=== PATIENT | female | born 1985 | race Caucasian/White ===

== ENCOUNTER 2024-12-07 14:28 | Emergency (ER) | payer OTHER, SELFPAY ==
[2024-12-07 14:51] VITALS: BP 141/88; PULSE 88; TEMP 37.2; O2SAT 100; BMI 53.4
--- NOTE | 2024-12-07 14:59 | PC.NURSE ---
Abcess at jones, painful 10/10 when walking.
[2024-12-07] MEDS: LORAZEPAM 1 MG TABLET PO (15:39)
[2024-12-07] MEDS: LIDOCAINE HCL 1% 100 MG/10 ML MDV INJ (15:39)
--- NOTE | 2024-12-07 16:15 | ED.GENADUL1 ---
HPI HPI - General Adult General Chief complaint: Skin/Abscess/Foreign Body Stated complaint: L LEG PAIN Time Seen by Provider: 12/07/24 15:03 Source: patient Mode of arrival: walk-in History of Present Illness HPI narrative: 39-year-old female presents here with a chief complaint of a subcuticular abscess to the left jones. She states she accidentally nicked her skin while shaving and then developed an abscess. She was placed on doxycycline by dermatology. She called them today stating the abscess was getting bigger had not drained so they had her come to the emergency room. Patient has a 6 x 8 cm area of induration with purulent drainage noted. She is afebrile does not appear toxic there is no streaking. Related Data Home Medications ?Medication ?Instructions ?Recorded ?Confirmed doxycycline monohydrate 100 mg 100 mg PO Q12H 12/07/24 12/07/24 capsule famotidine 40 mg tablet 40 mg PO BID 12/07/24 12/07/24 hydroxyzine HCl 10 mg tablet 10 mg PO QPM PRN itching 12/07/24 12/07/24 montelukast 10 mg tablet 10 mg PO DAILY 12/07/24 12/07/24 tacrolimus 0.1 % topical ointment topical Q12H 12/07/24 Previous Rx's ?Medication ?Instructions ?Recorded cephalexin 500 mg capsule 500 mg PO BID 10 days #20 caps 12/07/24 Allergies Allergy/AdvReac Type Severity Reaction Status Date / Time No Known Drug Allergies Allergy Verified 12/07/24 14:47 Opioid HPI Opioid Management Most Recent Opioid Data: Last Pain Scale 10 Today, 14:51 Review of Systems ROS Status of ROS 10 or more systems reviewed and unremarkable except as noted in history and below [facility] Medical History (Updated 12/07/24 @ 16:14 by Hilary Henning) Eczema ?L30.9 - Dermatitis, unspecified (ICD-10) Eczema ?L30.9 - Dermatitis, unspecified (ICD-10) Social History Little interest or pleasure in doing things: not at all Feeling down, depressed, or hopeless: not at all Exam Narrative Exam Narrative: All Systems are negative except as noted/marked.All systems reviewed and otherwise negative Nurses note and vital signs reviewed and patient is not hypoxic. General: The patient appears well and in no apparent distress. Patient is resting comfortably on cart. Skin: Warm, dry, no pallor noted. Abscess to the left jones Head: Normocephalic, atraumatic Eye: Normal conjunctiva, no drainage, EOMI. PERRL Ears, Nose, Mouth, and Throat: oral mucosa is moist. Nares patent. Mouth without vesicles. Ear canals patent. Tm's without Erythema Cardiovascular: Regular Rate and Rhythm Respiratory: Patient is in no distress, no accessory muscle use, lungs are clear to auscultation, no wheezing, rales or rhonchi Musculoskeletal: 6 x 8 cm area of induration to left jones, purulent drainage, tender to palpation, the patient has no evidence of calf tenderness, no pitting edema, symmetrical pulses noted bilaterally Neurological: A&O x4, normal speech Psychiatric: Cooperative Constitutional Vital Signs, click to edit/add: Last Vital Signs Temp 99.0 F 12/07/24 14:51 Pulse 88 12/07/24 14:51 Resp 16 12/07/24 14:51 BP 141/88 12/07/24 14:51 Pulse Ox 100 12/07/24 14:51 O2 Del Method Room Air 12/07/24 14:51 Course Vital Signs Vital signs: Vital Signs Temperature 99.0 F 12/07/24 14:51 Pulse Rate 88 12/07/24 14:51 Respiratory Rate 16 12/07/24 14:51 Blood Pressure 141/88 12/07/24 14:51 Pulse Oximetry 100 12/07/24 14:51 Oxygen Delivery Method Room Air 12/07/24 14:51 Temperature 99.0 F 12/07/24 14:51 Pulse Rate 88 12/07/24 14:51 Respiratory Rate 16 12/07/24 14:51 Blood Pressure 141/88 12/07/24 14:51 Pulse Oximetry 100 12/07/24 14:51 Oxygen Delivery Method Room Air 12/07/24 14:51 Medical Decision Making MDM Narrative Medical decision making narrative: 39-year-old female presents here with a chief complaint of a subcuticular abscess to the left jones. She states she accidentally nicked her skin while shaving and then developed an abscess. She was placed on doxycycline by dermatology. She called them today stating the abscess was getting bigger had not drained so they had her come to the emergency room. Patient has a 6 x 8 cm area of induration with purulent drainage noted. She is afebrile does not appear toxic there is no streaking. 1% lidocaine solution injected locally into the left anterior jones, small incision with 11 blade made. Copious amount purulent drainage was expressed from the area. Wound was irrigated well with Hibiclens and normal saline solution. Area was inoculated as well. Clean dressing was then applied. Area was marked with a skin marker. She had a 6 x 8 cm area of induration noted. Patient was given instructions for I&D therapy she will also be placed on Keflex. Patient is to follow-up with her primary care physician. Reasons to return to the emergency room were discussed. Patient verbalized understanding agrees with plan of care Differential Diagnosis Differential Diagnosis: abscess, cellulitis, folliculitis Medical Records Medical records reviewed: Yes I reviewed the patient's medical records Discharge Plan Discharge Chief Complaint: Skin/Abscess/Foreign Body Clinical Impression: Abscess of skin or subcutaneous tissue Patient Disposition: Home, Self-Care Time of Disposition Decision: 16:14 Condition: Good Prescriptions / Home Meds: New cephalexin 500 mg capsule 500 mg PO BID 10 Days Qty: 20 0RF No Action doxycycline monohydrate 100 mg capsule 100 mg PO Q12H famotidine 40 mg tablet 40 mg PO BID montelukast 10 mg tablet 10 mg PO DAILY tacrolimus 0.1 % ointment TOPICAL Q12H hydroxyzine HCl 10 mg tablet 10 mg PO QPM PRN (Reason: itching) Print Language: Prydeinig Instructions: Abscess (ED), Abscess Incision and Drainage (DC) Referrals: Kacy Jarrett NP [Primary Care Provider] - 1 week
[2024-12-07] MEDS: HYDROCODONE/ACET 5-325 MG TABLET 1 TAB PO (16:23)
[2024-12-07] MEDS: ONDANSETRON 4 MG RAPDIS TABLET SL (16:24)
--- NOTE | 2024-12-07 16:35 | ED.SKABFB1 ---
HPI - Skin/Abscess/Foreign Bdy General Chief complaint: Skin/Abscess/Foreign Body Stated complaint: L LEG PAIN Time Seen by Provider: 12/07/24 15:03 Source: patient Mode of arrival: walk-in History of Present Illness HPI narrative: duplicate, entered in error Related Data Home Medications ?Medication ?Instructions ?Recorded ?Confirmed doxycycline monohydrate 100 mg 100 mg PO Q12H 12/07/24 12/07/24 capsule famotidine 40 mg tablet 40 mg PO BID 12/07/24 12/07/24 hydroxyzine HCl 10 mg tablet 10 mg PO QPM PRN itching 12/07/24 12/07/24 montelukast 10 mg tablet 10 mg PO DAILY 12/07/24 12/07/24 tacrolimus 0.1 % topical ointment topical Q12H 12/07/24 Previous Rx's ?Medication ?Instructions ?Recorded cephalexin 500 mg capsule 500 mg PO BID 10 days #20 caps 12/07/24 Allergies Allergy/AdvReac Type Severity Reaction Status Date / Time No Known Drug Allergies Allergy Verified 12/07/24 14:47 Review of Systems ROS Status of ROS 10 or more systems reviewed and unremarkable except as noted in history and below [facility] Medical History (Updated 12/07/24 @ 16:14 by Hilary Henning) Eczema ?L30.9 - Dermatitis, unspecified (ICD-10) Eczema ?L30.9 - Dermatitis, unspecified (ICD-10) Social History Little interest or pleasure in doing things: not at all Feeling down, depressed, or hopeless: not at all Exam Constitutional Vital Signs, click to edit/add: Last Vital Signs Temp 99.0 F 12/07/24 14:51 Pulse 88 12/07/24 14:51 Resp 16 12/07/24 14:51 BP 141/88 12/07/24 14:51 Pulse Ox 100 12/07/24 14:51 O2 Del Method Room Air 12/07/24 14:51 Course Vital Signs Vital signs: Vital Signs Temperature 99.0 F 12/07/24 14:51 Pulse Rate 88 12/07/24 14:51 Respiratory Rate 16 12/07/24 14:51 Blood Pressure 141/88 12/07/24 14:51 Pulse Oximetry 100 12/07/24 14:51 Oxygen Delivery Method Room Air 12/07/24 14:51 Temperature 99.0 F 12/07/24 14:51 Pulse Rate 88 12/07/24 14:51 Respiratory Rate 16 12/07/24 14:51 Blood Pressure 141/88 12/07/24 14:51 Pulse Oximetry 100 12/07/24 14:51 Oxygen Delivery Method Room Air 12/07/24 14:51 Discharge Plan Discharge Chief Complaint: Skin/Abscess/Foreign Body Clinical Impression: Abscess of skin or subcutaneous tissue Patient Disposition: Home, Self-Care Time of Disposition Decision: 16:14 Condition: Good Prescriptions / Home Meds: New cephalexin 500 mg capsule 500 mg PO BID 10 Days Qty: 20 0RF No Action doxycycline monohydrate 100 mg capsule 100 mg PO Q12H famotidine 40 mg tablet 40 mg PO BID montelukast 10 mg tablet 10 mg PO DAILY tacrolimus 0.1 % ointment TOPICAL Q12H hydroxyzine HCl 10 mg tablet 10 mg PO QPM PRN (Reason: itching) Print Language: Frisian Instructions: Abscess (ED), Abscess Incision and Drainage (DC) Referrals: Kacy Jarrett NP [Primary Care Provider] - 1 week Discharge Date/Time: 12/07/24 16:40
== END 2024-12-07 16:40 | disposition home or self-care (01) ==
PROVIDERS: Emergency Provider Emergency Medicine; PCP Nurse Practitioner Family
DX: L02.416 Cutaneous abscess of left lower limb (principal)
CPT/HCPCS: 10060; 87070; 87075; 87186; 99284; Q0162